=== PATIENT | female | born 1960 | race Caucasian/White ===

== ENCOUNTER 2020-10-14 15:56 | Emergency (ER) | payer BC ==
[2020-10-14] MEDS ORDERED: Lorazepam 2 MG/ML VIAL ONE (16:20)
[2020-10-14] MEDS ORDERED: Ondansetron PF 4 MG/2 ML Vial ONE (16:20)
[2020-10-14] MEDS ORDERED: Meclizine HCl 25 MG TAB ONE (17:17)
== END 2020-10-14 18:10 | disposition home or self-care (01) ==
LOC: ERS 15:56
DX: R42 Dizziness and giddiness (principal); I10 Essential (primary) hypertension; E78.00 Pure hypercholesterolemia, unspecified; E11.9 Type 2 diabetes mellitus without complications; Z79.84 Long term (current) use of oral hypoglycemic drugs; Z79.899 Other long term (current) drug therapy
CPT/HCPCS: 93005; 96374; 96375; J2060; J2405

== ENCOUNTER 2021-01-14 10:51 | Outpatient (CLI) | payer BC | END 2021-01-14 10:52 | disposition home or self-care (01) | LOC: BICRAD 10:51 | PROVIDERS: ATTEND Neurological Surgery | DX: M50.20 Other cervical disc displacement, unspecified cervical region (principal); M47.812 Spondylosis without myelopathy or radiculopathy, cervical region | CPT/HCPCS: 72040 ==

== ENCOUNTER 2021-04-25 11:12 | Outpatient (CLI) | payer BC | END 2021-04-25 11:13 | disposition home or self-care (01) | LOC: BICMAMMO 11:12 | PROVIDERS: ATTEND Internal Medicine | DX: Z12.31 Encounter for screening mammogram for malignant neoplasm of breast (principal) | CPT/HCPCS: 77063; 77067 ==

== ENCOUNTER 2021-05-18 09:12 | Outpatient (CLI) | payer BC | END 2021-05-18 09:13 | disposition home or self-care (01) | LOC: BICRAD 09:12 | PROVIDERS: ATTEND Neurological Surgery | DX: M50.00 Cervical disc disorder with myelopathy, unspecified cervical region (principal); Z98.1 Arthrodesis status | CPT/HCPCS: 72040 ==